=== PATIENT | female | born 1960 | race Caucasian/White ===

== ENCOUNTER 2023-07-19 22:18 | Emergency (ER) | payer OTHER ==
[~2023-07-19] VITALS: Ht 154.9 cm; Wt 73.2 kg
[2023-07-19 22:31] VITALS: BP 126/61; O2SAT 100
[2023-07-20 03:22] VITALS: PULSE 75; RESP 16; TEMP 98.1
== END 2023-07-20 03:23 | disposition home or self-care (01) ==
LOC: ER 22:18
DX: Z01.818 Encounter for other preprocedural examination (principal); Z20.822 Contact with and (suspected) exposure to COVID-19; Z85.9 Personal history of malignant neoplasm, unspecified
CPT/HCPCS: 99283; C9803